=== PATIENT | male | born 1960 | race Caucasian/White ===

== ENCOUNTER 2017-09-19 12:28 | Emergency (ER) | payer OTHER ==
[~2017-09-19] VITALS: Ht 175.3 cm; Wt 99.8 kg
--- NOTE | ~2017-09-19 | EKG ---
[place] [address] [facility] [facility] [employer] [place] [address] ELECTROCARDIOGRAM REPORT Name: DORENEJESSIE Adan [facility] #: [facility]ann[facility] [id number] Admission: 09/19/17 Attend Phys: Discharge: 09/19/17 Date of : 62 Report #: [id number] THIS REPORT FOR: //name// [facility] ED Test Date: 2017-09-19 Test Time: 12:33:45 Pat Name: JESSIE CATHERINE Department: Room: Gender: [employer]: [facility] : 1960 Requested By: Myrna Barth Order Number: [id number] MD: Yonny Pham Measurements Intervals [place] Rate: 115 P: 61 MO: 172 QRS: 65 QRSD: 97 T: 31 QT: 321 QTc: 444 Interpretive Statements Sinus tachycardia Otherwise no significant abnormality No previous ECG available for comparison Electronically Signed On 09-21-2017 8:41:06 [employer]EV[employer] by Yonny Pham [email or web address] <ELECTRONICALLY SIGNED> By: Yonny Pham MD, [facility] 09/21/17 0841 1233 1233 Yonny Pham MD, FACC /EPI
[2017-09-19] MEDS ORDERED: PROAIR HFA8.5 GM INH (14:20)
[2017-09-19] MEDS ORDERED: GUAIFENESIN-CODE5 ML PO (14:20)
[2017-09-19] MEDS ORDERED: DOXYCYCLINE 10100 MG PO (14:20)
[2017-09-19] MEDS ORDERED: TESSALON PERLE100 MG PO (14:20)
== END 2017-09-19 14:52 | disposition home or self-care (01) ==
LOC: ER 12:28
DX: J15.9 Unspecified bacterial pneumonia (principal); I10 Essential (primary) hypertension; F17.200 Nicotine dependence, unspecified, uncomplicated

== ENCOUNTER 2018-07-04 19:28 | Emergency (ER) | payer OTHER ==
[~2018-07-04] VITALS: Ht 175.3 cm; Wt 81.7 kg
[~2018-07-04 19:28] MED LIST: DOXYCYCLINE 10100 MG PO; GUAIFENESIN-CODE5 ML PO; PROAIR HFA8.5 GM INH; TESSALON PERLE100 MG PO
[2018-07-04 19:44] LABS: URINE BILIRUBIN NEGATIVE (Negative); URINE BLOOD 3+ (Negative); URINE CLARITY CLEAR; URINE COLOR YELLOW; URINE GLUCOSE-RANDOM* NEGATIVE (Negative); URINE KETONES NEGATIVE (Negative); URINE NITRITE-REFLEX NEGATIVE (Negative); URINE PROTEIN (DIPSTICK) TRACE (Negative); URINE SPECIFIC GRAVITY >= 1.030 (1.005-1.035); URINE UROBILINOGEN 0.2 E.U./dl (0.2-1.0)
[2018-07-04 19:48] LABS: URINE LEUKOCYTES-REFLEX TRACE (Negative)
[2018-07-04 19:54] LABS: URINE RBC 3-10 Few /HPF (0-2)
[2018-07-04 19:55] LABS: BACTERIA-REFLEX 1-9 Few /HPF (None Seen); CASTS None Seen /LPF (None Seen); CRYSTALS None Seen /LPF (None Seen); SQUAMOUS None Seen /LPF (0-3); URINE WBC-REFLEX 0-5 Rare /HPF (0-5)
[2018-07-04 20:19] LABS: HEMATOCRIT 41.6 % (42.0-52.0); HEMOGLOBIN 14.8 gm/dL (14.0-18.0); MCH 32.2 pg (26.0-34.0); MCHC 35.5 g/dL (28.0-37.0); MCV 90.8 fL (80.0-100.0); RBC 4.58 mil/uL (4.50-6.00); WBC 7.5 thou/uL (4.0-11.0)
[2018-07-04 20:28] LABS: CALCIUM 9.2 mg/dL (8.5-10.1); CREATININE 0.9 mg/dL (0.7-1.3); POTASSIUM 3.8 mmol/L (3.5-5.1)
[2018-07-04] MEDS ORDERED: PHENAZOPYRIDIN200 M2 PO (20:54)
[2018-07-04] MEDS ORDERED: KEFLEX500 M1 PO (20:54)
[2018-07-04 21:07] VITALS: BP 134/65
== END 2018-07-04 21:10 | disposition home or self-care (01) ==
LOC: ER 19:28
PROVIDERS: Physician Assistant; Student in an Organized Health Care Education/Training Program
DX: N39.0 Urinary tract infection, site not specified (principal); R31.9 Hematuria, unspecified; I10 Essential (primary) hypertension

== ENCOUNTER 2018-08-31 19:03 | Emergency (ER) | payer OTHER ==
[~2018-08-31] VITALS: Ht 182.9 cm; Wt 110.4 kg
[~2018-08-31 19:03] MED LIST changes: +KEFLEX500 M1 PO; +PHENAZOPYRIDIN200 M2 PO
[2018-08-31 19:38] LABS: URINE BILIRUBIN NEGATIVE (Negative); URINE BLOOD TRACE (Negative); URINE CLARITY CLEAR; URINE COLOR YELLOW; URINE GLUCOSE-RANDOM* NEGATIVE (Negative); URINE KETONES NEGATIVE (Negative); URINE LEUKOCYTES-REFLEX NEGATIVE (Negative); URINE NITRITE-REFLEX NEGATIVE (Negative); URINE PROTEIN (DIPSTICK) 1+ (Negative)
[2018-08-31 19:47] LABS: BACTERIA-REFLEX 1-9 Few /HPF (None Seen); CASTS None Seen /LPF (None Seen); CRYSTALS None Seen /LPF (None Seen); SQUAMOUS None Seen /LPF (0-3); URINE RBC 0-2 Rare /HPF (0-2); URINE WBC-REFLEX 0-5 Rare /HPF (0-5)
[2018-08-31 19:55] LABS: ABSOLUTE NEUTROPHILS 5.3 thou/uL (1.4-8.2); BASOPHILS 1.4 % (0.0-2.0); EOSINOPHILS 2.1 % (0.0-3.0); HEMOGLOBIN 16.2 gm/dL (14.0-18.0); LYMPHOCYTES 19.9 % (24.0-44.0); MCH 31.8 pg (26.0-34.0); MCHC 35.3 g/dL (28.0-37.0); MCV 90.1 fL (80.0-100.0); MONOCYTES 7.2 % (1.0-8.0); POLYS 69.4 % (36.0-66.0); WBC 7.6 thou/uL (4.0-11.0)
[2018-08-31 20:06] LABS: CALCIUM 9.2 mg/dL (8.5-10.1); CREATININE 0.9 mg/dL (0.7-1.3); POTASSIUM 3.8 mmol/L (3.5-5.1)
[2018-08-31 20:11] LABS: ALBUMIN 3.4 g/dL (3.4-5.0); TOTAL BILIRUBIN 0.9 mg/dL (<0.1-1.0)
[2018-08-31 20:21] LABS: PLATELET COUNT 94 thou/uL (150-400)
[2018-08-31] MEDS ORDERED: KEFLEX500 M1 PO (20:57)
[2018-08-31 21:10] VITALS: BP 160/74
== END 2018-08-31 21:11 | disposition home or self-care (01) ==
LOC: ER 19:03
PROVIDERS: Student in an Organized Health Care Education/Training Program
DX: L03.114 Cellulitis of left upper limb (principal); F17.210 Nicotine dependence, cigarettes, uncomplicated; I10 Essential (primary) hypertension

== ENCOUNTER 2018-10-29 13:38 | Emergency (ER) | payer OTHER ==
[2018-10-29 13:41] VITALS: BP 144/96
== END 2018-10-29 13:58 | disposition left against medical advice (07) ==
LOC: ER 13:38
DX: K62.5 Hemorrhage of anus and rectum (principal); Z53.21 Procedure and treatment not carried out due to patient leaving prior to being seen by health care provider

== ENCOUNTER 2020-10-27 15:34 | Emergency (ER) | payer OTHER ==
[~2020-10-27] VITALS: Ht 175.3 cm; Wt 81.7 kg
[2020-10-27 15:36] VITALS: BP 144/75
[2020-10-27 19:06] LABS: BUN 18 mg/dL (7-18); CALCIUM 9.5 mg/dL (8.5-10.1); CO2 16 mmol/L (21-32); CREATININE 0.4 mg/dL (0.7-1.3); GLUCOSE 133 mg/dL (74-106); POTASSIUM 5.2 mmol/L (3.5-5.1); SODIUM 131 mmol/L (136-145)
[2020-10-27 19:07] LABS: TROPONIN-I <0.06 ng/mL (<0.06)
[2020-10-27 19:33] LABS: ANION GAP 19 mmol/L (7-16); CHLORIDE 96 mmol/L (98-107)
--- NOTE | 2020-10-28 07:18 | EKG ---
[place] [address] [facility] [employer] [place] [address] ELECTROCARDIOGRAM REPORT Name: JESSIE CATHERINE [facility] [id number] Admission: 10/27/20 Attend Phys: Discharge: 10/27/20 Date of : 62 Report #: [id number] [facility] ED Test Date: 2020-10-27 Test Time: 15:37:50 Pat Name: JESSIE CATHERINE Department: Room: Gender: M [employer]: [place] : 1960 Requested By: John Sky Order Number: [id number] MD: Lebron Acevedo Measurements Intervals [place] Rate: 108 P: 65 WI: 181 QRS: 61 QRSD: 99 T: 26 QT: 334 QTc: 448 Interpretive Statements Sinus tachycardia Probable left atrial enlargement Borderline ST elevation, anterolateral leads Baseline wander in lead(s) V1 Compared to ECG 09/19/2017 12:33:45 ST (T wave) deviation now present Electronically Signed On 10-28-2020 7:18:43 CDT by Lebron Acevedo [email or web address] <ELECTRONICALLY SIGNED> By: Lebron Acevedo MD, [facility] 10/28/20 07 36 36 Lebron Acevedo MD, FAC /EPI
== END 2020-10-27 21:31 | disposition left against medical advice (07) ==
LOC: ER 15:34
PROVIDERS: Nurse Practitioner
DX: R07.9 Chest pain, unspecified (principal); I10 Essential (primary) hypertension; F17.210 Nicotine dependence, cigarettes, uncomplicated; Z79.899 Other long term (current) drug therapy